=== PATIENT | female | born 1945 | race Caucasian/White ===

== ENCOUNTER 2017-09-21 06:49 | Day surgery (SDC) | payer MEDICARE, OTHER ==
--- NOTE | 2017-09-13 18:38 | HP ---
HISTORY AND PHYSICAL: DATE OF ADMISSION/SURGERY: 09/21/17 SURGEON: Dr. Esteban.* (DICTATED BY LUCIO SOTO) PROCEDURE: Left long finger excision of mass. CHIEF COMPLAINT: Left middle finger cyst. HISTORY OF PRESENT ILLNESS: Sophy is a very pleasant 72-year-old female, who has a lump on the dorsal aspect of her left middle finger. She says it has been present for a few months. She says that she had it drained a couple of times, once by her daughter, who is a PA, and then again by her primary care doctor. Both times it has recurred pretty quickly. She does not have any significant amount of pain and she does not recall any injury, but is quite bothersome. It has never drained spontaneously. She denies any numbness or tingling associated with it. PAST MEDICAL HISTORY: Significant for anxiety, hypothyroidism, and depression. PAST SURGICAL HISTORY: Includes thyroid and parathyroid, strabismus surgery x2 , and right total knee arthroplasty. MEDICATIONS: 1. Levothyroxine 50 mcg. 2. Montelukast 10 mg. 3. Citalopram 10 mg. 4. Zyrtec 10 mg. 5. B12 1000 mg. 6. Vitamin D3 1000 International Units. 7. Calcium 600 mg. 8. Multivitamin daily. ALLERGIES: She denies any known drug allergy. She has no allergy to tape or adhesive. SOCIAL HISTORY: She denies any tobacco use. She drinks alcohol socially and she denies any illicit drug use. REVIEW OF SYSTEMS: Positive for her current complaint. She denies any history of DVT or PE. She denies any history of fevers, chills, lightheadedness, palpitations, chest pain, shortness of breath with exertion, nausea, vomiting, constipation, abdominal pain, dysuria, or urinary urgency. She does endorse depression, anxiety, and thyroid disease. She denies any previous infections with MRSA, hepatitis C, or HIV. PHYSICAL EXAMINATION GENERAL: Well-developed, well-nourished, healthy-appearing, pleasant woman in minimal distress at rest. She ambulates without a limp. She has no obvious neurologic deficiency. She is alert and oriented x3. VITAL SIGNS: Height 66 inches, weight 134 pounds, pulse 70, blood pressure sitting 120/82, pain level 0, BMI 21.6. HEENT: Normocephalic, atraumatic. Pupils equally round and reactive to light and accommodation. Extraocular movements intact. NECK: Supple. There are no palpable cervical lymph nodes. Her thyroid is smooth and nontender. PULMONARY: Lungs clear to auscultation bilaterally with no wheezes, rales, or rhonchi. CARDIAC: Regular rate and rhythm. No murmurs, rubs, or gallops. No pedal edema. 2+ left radial pulse and brisk capillary refill at the left and right hands. ABDOMEN: Soft and nontender. MUSCULOSKELETAL: Her left hand, she has a large cystic mass just proximal to her left middle finger fingernail. She has good motion at the DIP joint. She has full extension and good flexion. Skin is intact. The cyst markedly. Neurovascular function is intact. DIAGNOSTIC STUDIES: X-ray, AP, lateral, and oblique of the left middle finger show dorsal bone spur at the DIP joint. IMPRESSION: Mucous cyst of the left middle finger. PLAN: Sophy is scheduled for a surgical removal of the left mucous cyst with Dr. Esteban on 09/21/17; specifically, she is scheduled for left long finger excision of mass. She will return to clinic in 7 to 10 days postop for followup and suture removal. Prescription for pain medication will be e- scribed to the patient's pharmacy of choice on the day of operation. All questions were answered today. LUCIO SOTO [id number]/[facility] #: [id number] ALIZA
[~2017-09-21 06:49] MED LIST: Buffered Lidocaine 0.9% SYRIN* 5 ML/SYR SYRINGE INTRADERM ONE
[2017-09-21] MEDS ORDERED: Lidocaine 1% INJ* 10 MG/ML 30 ML SDV ONE (07:54)
[2017-09-21] MEDS ORDERED: fentaNYL* 50 MCG/ML 2 ML VIAL (100 MCG VIAL) ONE (08:00)
[2017-09-21] MEDS ORDERED: Propofol* 10 MG/ML 20 ML BTL IV PUSH ONE (08:01)
[2017-09-21] MEDS ORDERED: Lidocaine 2% PF * 5 ML VIAL ONE (08:01)
[2017-09-21] MEDS ORDERED: Naloxone* 0.4 MG/ML 1 ML VIAL IV PRN (08:38)
[2017-09-21 09:13] VITALS: BP 130/84
[2017-09-21] MEDS ORDERED: traMADol TAB* 50 MG ONE (09:20)
[2017-09-21] MEDS ORDERED: Acetaminophen TAB* 325 MG ONE (09:22)
--- NOTE | 2017-09-21 23:28 | OP ---
CC: Dr. Esteban OPERATIVE NOTE: DATE OF OPERATION: 09/21/17 DATE OF : 49 SURGEON: Clau Esteban MD MANAGER NURSING HOME: LUCIO Holley ANESTHESIA: Local MAC. PRE-OP DIAGNOSIS: Left long finger ganglion cyst. POST-OP DIAGNOSIS: Left long finger ganglion cyst. OPERATIVE PROCEDURE: Removal, left long finger ganglion cyst. ESTIMATED BLOOD LOSS: Zero. TOURNIQUET TIME: 20 minutes. INDICATIONS FOR PROCEDURE: Sophy is a 72-year-old female with a painful mass at the dorsal aspect of the DIP joint of her left long finger. She presents for removal clinically of this ganglion cyst. DESCRIPTION OF PROCEDURE: The patient was brought to the operating room, given a sedation anesthetic and a digital block with 10 cc of 1% plain lidocaine. The skin of her left hand and forearm was pre pped and draped in the usual sterile fashion. The middle finger was exsanguinated with a Tournicot an d Tournicot was left in place during the duration of the procedure. The dorsal aspect of the DIP wayne nt was incised with an H shaped incision and then the ganglion cyst, which was really large ski n significantly was carefully dissected away from the skin and the underlying extensor tendon. Then on either side of the extensor tendon, an incision was made and the DIP osteophytes were moved with a rongeur. The wound was irrigated and the skin edges were reapproximated with 4-0 nylon suture. The wound was dressed with Xeroform, 4x4, Webril, and Coban. The patient tolerated the procedure well, was brought to the recovery room in good condition. [id number]/[facility] #: [id number]
--- NOTE | 2017-09-23 06:50 | OP ---
CC: Dr. Esteban. OPERATIVE REPORT: DATE OF OPERATION: 09/21/17 ADDENDUM/CORRECTION: The blank in the body of the note should say "which was really large and had thinned the skin significantly". [id number]/[facility] #: [id number] MTDD
== END 2017-09-21 09:48 | disposition home or self-care (01) ==
LOC: OREAST 06:49
PROVIDERS: ATTEND Orthopaedic Surgery
DX: M67.442 Ganglion, left hand (principal); M19.90 Unspecified osteoarthritis, unspecified site; E03.9 Hypothyroidism, unspecified; F41.8 Other specified anxiety disorders
CPT/HCPCS: 88304; A9270-GY; J2704; J3010

== ENCOUNTER 2018-09-03 20:27 | Emergency (ER) | payer MEDICARE, BC ==
[2018-09-03 20:37] VITALS: BP 126/72
--- NOTE | 2018-09-03 21:17 | UC ---
Skin Complaint HPI - HPI Summary HPI Summary: 2 DAYS OF ITCHY, VERY PAINFUL RED RASH TO THE SIDE OF HER LEFT BREAST AND UNDER HER ARM. HER DAUGHTER ADVISED HER TO BE SEEN FOR POSSIBLE SHINGLES. NO FEVER. - History of Current Complaint Chief Complaint: UCSkin Time Seen by Provider: 09/03/18 20:51 Stated Complaint: RASH Hx Obtained From: Patient Onset/Duration: Gradual Onset, Lasting Days, Still Present Timing: Constant Onset Severity: Moderate Current Severity: Moderate Pain Intensity: 4 Pain Scale Used: 0-10 Numeric Character: Pruritus, Pain Aggravating Factor(s): Touch Alleviating Factor(s): Nothing Associated Signs & Symptoms: Positive: Rash, Tenderness. Negative: Nausea, Fever, Chills - Allergy/Home Medications Allergies/Adverse Reactions: Allergies Allergy/AdvReac Type Severity Reaction Status Date / Time No Known Allergies Allergy Verified 09/03/18 20:37 PMH/Surg Hx/FS Hx/Imm Hx Endocrine History: Hypothyroidism - Surgical History Surgical History: Yes Surgery Procedure, Year, and Place: thyroid/ parathyroid, 2012, [facility]. right total knee, 2014, [facility]. lazy eye, 2012, x2, [place] and [facility]. tonsilectomy as a child - Family History Known Family History: Positive: Non-Contributory - Social History Alcohol Use: Weekly Alcohol Amount: 1 per week Substance Use Type: None Smoking Status (MU): Never Smoked Tobacco Review of Systems All Other Systems Reviewed And Are Negative: Yes Constitutional: Positive: Fatigue Skin: Positive: Rash Respiratory: Positive: Negative Cardiovascular: Positive: Negative Gastrointestinal: Positive: Negative Physical Exam Triage Information Reviewed: Yes Appearance: Well-Appearing, No Pain Distress, Well-Nourished Vital Signs: Initial Vital Signs Temp 97.1 F 09/03/18 20:33 Pulse 60 09/03/18 20:33 Resp 18 09/03/18 20:33 BP 126/72 09/03/18 20:33 Pulse Ox 99 09/03/18 20:33 Vital Signs Reviewed: Yes Eyes: Positive: Conjunctiva Clear ENT: Positive: Hearing grossly normal Neck: Positive: Supple Respiratory: Positive: No respiratory distress, No accessory muscle use Cardiovascular: Positive: Pulses Normal Abdomen Description: Positive: Soft Musculoskeletal: Positive: No Edema Neurological: Positive: Alert Psychological: Positive: Age Appropriate Behavior Skin: Positive: Rashes - CLUSTERS OF VESICLES LEFT LATERAL BREAST AND UNDER AXILLA. TENDER. Course/Dx - Diagnoses Provider Diagnosis: Shingles Discharge - Sign-Out/Discharge Documenting (check all that apply): Patient Departure All imaging exams completed and their final reports reviewed: No Studies - Discharge Plan Condition: Stable Disposition: HOME Prescriptions: Valacyclovir HCl [Valacyclovir] 1,000 mg PO TID #21 tablet Patient Education Materials: Shingles (ED) Referrals: John Nieves MD [Medical Doctor] - If Needed Additional Instructions: YOUR RASH IS CONSISTENT WITH SHINGLES. START THE VALTREX JUS TO HELP EXPEDITE RESOLUTION OF YOUR SYMPTOMS. TAKE IBUPROFEN NEEDED FOR DISCOMFORT. THERE IS NO INDICATION FOR MEDICATIONS SPECIFICALLY FOR POST HERPETIC NEURALGIA (PHN) IN UNCOMPLICATED SHINGLES. IF YOU DEVELOP PHN (WHICH HOPEFULLY YOU WILL NOT) YOU CAN DISCUSS TREATMENT WITH YOUR PCP AT THAT TIME. YOU ARE CONTAGIOUS TO UNVACCINATED INFANTS SO BE SURE TO KEEP THE RASH COVERED. - Billing Disposition and Condition Condition: STABLE Disposition: Home
== END 2018-09-03 21:19 | disposition home or self-care (01) ==
LOC: UCEAST 20:27
DX: B02.9 Zoster without complications (principal)
CPT/HCPCS: 99202; G0463

== ENCOUNTER 2018-11-11 12:28 | Emergency (ER) | payer MEDICARE, BC ==
[2018-11-11 13:06] VITALS: BP 116/71
--- NOTE | 2018-11-11 13:33 | UC ---
Throat Pain/Nasal Wilber HPI - HPI Summary HPI Summary: 73-year-old female presents stating she woke up with a sore throat this morning. States she has had some mild nasal congestion and runny nose that she attributes to her allergies. States the pain radiates up into both ears. Denies fever, chills, dysphagia, cough, chest pain, shortness of breath. - History of Current Complaint Chief Complaint: UCGeneralIllness Stated Complaint: SORE THROAT Time Seen by Provider: 11/11/18 13:22 Hx Obtained From: Patient Pain Intensity: 0 - Allergies/Home Medications Allergies/Adverse Reactions: Allergies Allergy/AdvReac Type Severity Reaction Status Date / Time No Known Allergies Allergy Verified 11/11/18 13:05 PMH/Surg Hx/FS Hx/Imm Hx Endocrine History: Hypothyroidism Psychological History: Depression - Surgical History Surgical History: Yes Surgery Procedure, Year, and Place: thyroid/ parathyroid, 2012, [facility]. right total knee, 2014, [facility]. lazy eye, 2012, x2, [place] and [facility]. tonsilectomy as a child - Family History Known Family History: Positive: Non-Contributory - Social History Occupation: Retired Lives: Alone Alcohol Use: Weekly Alcohol Amount: 1 per week Substance Use Type: None Smoking Status (MU): Never Smoked Tobacco Review of Systems All Other Systems Reviewed And Are Negative: Yes Constitutional: Negative: Fever, Chills Skin: Negative: Rash Eyes: Negative: Drainage, Eye Redness ENT: Positive: Sore Throat, Ear Ache, Nasal Discharge, Sinus Congestion. Negative: Sinus Pain/Tenderness Respiratory: Negative: Shortness Of Breath, Cough Cardiovascular: Negative: Palpitations, Chest Pain Gastrointestinal: Negative: Abdominal Pain, Vomiting, Diarrhea, Nausea Genitourinary: Positive: Negative Musculoskeletal: Positive: Negative Neurological: Positive: Negative Is Patient Immunocompromised?: No Physical Exam - Summary Physical Exam Summary: GENERAL APPEARANCE: Well developed, well nourished, alert and cooperative, and appears to be in no acute distress. EYES: Conjunctiva clear. No drainage. EARS: External auditory canals and tympanic membranes clear, hearing grossly intact. NOSE: No nasal discharge. THROAT: Pharyngeal erythema. Tonsils surgically absent. Uvula midline. Oral cavity normal. Teeth and gingiva in good general condition. NECK: Neck supple. Tender, swollen left anterior cervical lymph node. CARDIAC: Normal S1 and S2. No S3, S4 or murmurs. Rhythm is regular. There is no peripheral edema, cyanosis or pallor. Extremities are warm and well perfused. Capillary refill is less than 2 seconds. Peripheral pulses intact. LUNGS: Clear to auscultation without rales, rhonchi, wheezing or diminished breath sounds. ABDOMEN: Positive bowel sounds. Soft, nondistended, nontender. No guarding or rebound. No masses or hepatosplenomegally. MUSKULOSKELETAL: ROM intact to all extremities. No joint erythema or tenderness. Normal muscular development. Normal gait. SKIN: Skin normal color, texture and turgor with no lesions or eruptions. Triage Information Reviewed: Yes Vital Signs: Initial Vital Signs Temp 98.2 F 11/11/18 13:03 Pulse 70 11/11/18 13:03 Resp 18 11/11/18 13:03 BP 116/71 11/11/18 13:03 Pulse Ox 100 11/11/18 13:03 Vital Signs Reviewed: Yes Throat Pain/Nasal Course/Dx - Course Course Of Treatment: 73-year-old female presents stating she woke up with a sore throat this morning. States she has had some mild nasal congestion and runny nose that she attributes to her allergies. States the pain radiates up into both ears. Denies fever, chills, dysphagia, cough, chest pain, shortness of breath. Afebrile. Vital signs stable. Exam was remarkable for some pharyngeal erythema and a tender, swollen left anterior cervical lymph node. Rapid strep was negative. Recommending symptomatic treatment for a viral pharyngitis. She is to follow-up with her primary care provider in 7 days if no improvement in her symptoms. Anticipatory guidance and warning symptoms were reviewed with the patient. Verbalized understanding and agrees with care. - Differential Dx/Diagnosis Differential Diagnosis/HQI/PQRI: Pharyngitis, Sinusitis, Tonsillitis, URI Provider Diagnosis: Viral pharyngitis Discharge - Sign-Out/Discharge Documenting (check all that apply): Patient Departure All imaging exams completed and their final reports reviewed: No Studies - Discharge Plan Condition: Stable Disposition: HOME Patient Education Materials: Pharyngitis (ED) Referrals: No Primary Care Phys,NOPCP [Primary Care Provider] - Additional Instructions: Your rapid strep test in the clinic today was negative. Your symptoms are likely from a viral infection. Viral infections do not respond to antibiotics and are limited to the treatment of symptoms. Viral infections typically run their course in 7-10 days. Drink plenty of fluids to avoid dehydration especially if you are running any fever. Use salt water gargles several times a day. Take over the counter acetaminophen (Tylenol) or ibuprofen (Advil, Motrin) according to directions as needed for pain or fever. You may also use Chloraseptic spray or Cepacol lonzenges according to directions which contain a numbing medication and can provide some temporary relief from your sore throat. Return here or follow up with your primary care provider in 7 days if symptoms persist. Seek immediate medical attention in the emergency room if you have fever greater than 100.5 F despite taking acetaminophen or ibuprofen, are unable to swallow or develop drooling, are unable to open your mouth fully, are unable to eat or drink, have pain that is not relieved with over the counter pain medication, or have any difficulty breathing. - Billing Disposition and Condition Condition: STABLE Disposition: Home - Attestation Statements Provider Attestation: Per institutional requirements, I have reviewed the chart, however, I was not consulted specifically or made aware of this patient by the midlevel provider. I did not personally evaluate, interact with , or disposition this patient.
== END 2018-11-11 13:45 | disposition home or self-care (01) ==
LOC: UCEAST 12:28
DX: J02.8 Acute pharyngitis due to other specified organisms (principal); E03.9 Hypothyroidism, unspecified; F32.9 Major depressive disorder, single episode, unspecified
CPT/HCPCS: 87651; 99211; G0463

== ENCOUNTER 2022-12-07 02:13 | Inpatient (IN) ==
[2022-12-07] MEDS ORDERED: Sodium Phosphate ADULT ENEMA 133 ML BTL PR ONE (02:42)
[2022-12-07 02:44] LABS: ABS Lymphocytes 0.5 10^3/uL (1.0-4.8); ABS Monocytes 0.1 10^3/uL (0.0-0.9); ABS Neutrophils 3.1 10^3/uL (1.5-7.6); ABS Nucleated RBC 0.01 10^3/ul; Eosinophil % 0.1 %; Hematocrit 39.9 % (35-45); Hemoglobin 13.5 g/dL (11.5-14.3); Mean Corpuscular Hemoglobin 32.4 pg (27-33); Mean Corpuscular Hgb Conc 33.9 g/dL (31-36); Mean Corpuscular Volume 95.4 fL (80-97); Mean Platelet Volume 8.5 fL (7.5-11.2); Nucleated Red Blood Cells % 0.2 /100 WBC (0.0-0.4); Platelet Count 190 10^3/uL (150-450); Red Blood Count 4.18 10^6/uL (3.63-4.92); Red Cell Distribution Width 13.6 % (12-17); White Blood Count 3.7 10^3/uL (3.8-11.8)
[2022-12-07 03:00] LABS: ALT 11 U/L (7-52); AST 13 U/L (13-39); Albumin 3.6 g/dL (3.2-5.2); Albumin/Globulin Ratio 1.7 (1-3); Alkaline Phosphatase 31 U/L (35-149); Anion Gap 9 mmol/L (2-16); Blood Urea Nitrogen 36 mg/dL (6-24); CO2 Carbon Dioxide 25 mmol/L (22-32); Calcium 8.7 mg/dL (8.6-10.3); Chloride 105 mmol/L (101-111); Creatinine, Serum 1.22 mg/dL (0.51-0.95); Globulin 2.1 g/dL (2-4); Glucose 118 mg/dL (70-100); Potassium 4.6 mmol/L (3.5-5.0); Sodium 139 mmol/L (135-145); Total Protein 5.7 g/dL (6.4-8.9); eGFR CKD-EPI 46.3 (>60)
[2022-12-07] MEDS ORDERED: NS 0.9% 1000 ml BAG 1,000 ML IV ONE ×2 (03:46→07:29)
[2022-12-07] MEDS ORDERED: fentaNYL 100 mcg/2 ml 50 MCG/ML VIAL IV SLOW PU ONE (05:36)
[2022-12-07] MEDS ORDERED: Ondansetron 4 mg VIAL 2 MG/ML 2 ml VIAL IV ONE (07:29)
[2022-12-07] MEDS ORDERED: HYDROmorphone 1 MG/1 ML SYRINGE IV SLOW PU ONE (07:45)
[2022-12-07 08:01] LABS: Indirect Bilirubin 1.5 mg/dL (0.3-1.0); Lipase < 10 U/L (11.0-82.0)
[2022-12-07] MEDS ORDERED: Iodixanol (CONTRAST) 320 MG/ML 100 ML SDV IV ONE (08:36)
[2022-12-07] MEDS ORDERED: HYDROmorphone 1 MG/1 ML SYRINGE IV ONE (10:02)
[2022-12-07] MEDS ORDERED: Piperacillin/Tazobac ADVAN 3.375 GM in NS 0.9% 100 ml BAG 100 ML IV ONE (10:51)
[2022-12-07] MEDS ORDERED: HYDROmorphone 1 MG/1 ML SYRINGE IV SLOW PU PRN (11:23)
[2022-12-07] MEDS ORDERED: Acetaminophen IV 1 GM/100ML 500 MG/50 ML BAG IV PRN (11:33)
[2022-12-07] MEDS ORDERED: NS 0.9% 1000 ml BAG 1,000 ML IV SCH (11:45)
[2022-12-07 11:57] LABS: C Reactive Protein 168.42 mg/L (<8.01)
[2022-12-07] MEDS ORDERED: Rocuronium 50 mg VIAL 10 mg/ml 5 ml VIAL (50 mg) ONE ×2 (12:03→15:03)
[2022-12-07] MEDS ORDERED: Phenylephrine IV 10 MG/ML 1 ml VIAL ONE (12:04)
[2022-12-07] MEDS ORDERED: fentaNYL 250 mcg/5 ml 50 MCG/ML 5 ml VIAL (250 MCG) ONE (12:04)
[2022-12-07] MEDS ORDERED: Propofol 10 MG/ML 20 ML BTL ONE ×2 (12:04→12:54)
[2022-12-07] MEDS ORDERED: Midazolam 2 mg/2 ml VIAL 1 mg/ml 2 ml VIAL (2 mg) ONE ×2 (12:04→12:23)
[2022-12-07] MEDS ORDERED: Lidocaine 2% PF 5 ML VIAL ONE ×2 (12:04→12:25)
[2022-12-07] MEDS ORDERED: Bupivacaine 0.5% 50 ML MDV VIAL ONE (13:39)
[2022-12-07] MEDS ORDERED: Ondansetron 4 mg VIAL 2 MG/ML 2 ml VIAL IV PRN (13:53)
[2022-12-07] MEDS ORDERED: Naloxone 0.4 mg VIAL 0.4 mg/ml 1 ml VIAL IV PRN (13:53)
[2022-12-07] MEDS ORDERED: Ondansetron 4 mg VIAL 2 MG/ML 2 ml VIAL ONE (17:58)
[2022-12-07] MEDS ORDERED: Dexamethasone IV 4 MG/ML VIAL 1 ml VIAL ONE (17:58)
[2022-12-07] MEDS ORDERED: HYDROmorphone 1 MG/1 ML SYRINGE ONE (18:26)
[2022-12-07] MEDS: HYDROmorphone 1 MG/1 ML SYRINGE IV PRN ×2 (18:28→18:43)
[2022-12-07] MEDS ORDERED: Naloxone 0.4 mg VIAL 0.4 mg/ml 1 ml VIAL IV PUSH PRN (18:52)
[2022-12-07] MEDS ORDERED: HYDROmorphone PCA 20 MG/20 ML PCA.SYRING PCA SCH (19:00)
[2022-12-07] MEDS ORDERED: Phenylephrine DRIP 0.2 MG/ML in NS 0.9% 250 ML (PHA mix) IV SCH (21:30)
[2022-12-07] MEDS ORDERED: PHENYLEPHRINE DRIP IVPREMIX 50 MG/250 ML BAG IV SCH (22:00)
[2022-12-07] MEDS ORDERED: D5W 1/2 NS 1000 ml BAG 1,000 ML IV SCH (22:00)
[2022-12-07] MEDS ORDERED: ZOSYN 3.375 GM x ONE DOSE over 30 miuntes IV (23:00)
[2022-12-07] MEDS: Acetaminophen IV 1 GM/100ML 1,000 MG/100 ML BAG IV SCH (23:17)
[2022-12-07] MEDS: Pantoprazole VIAL 40 MG VIAL IV SCH (23:31)
[2022-12-07] MEDS: Piperacillin/Tazobactam VIAL 3.375 GM in NS 0.9% 100 ml BAG 100 ML IVPB SCH (23:44)
[2022-12-08] MEDS: Piperacillin/Tazobactam VIAL 3.375 GM in NS 0.9% 100 ml BAG 100 ML IVPB SCH ×4 (00:27→22:24)
[2022-12-08] MEDS: Acetaminophen IV 1 GM/100ML 1,000 MG/100 ML BAG IV SCH ×4 (02:26→21:46)
[2022-12-08] MEDS ORDERED: NS 0.9% 1000 ml BAG 1,000 ML IV ONE (04:37)
[2022-12-08 04:59] LABS: Hematocrit 35.4 % (35-45); Hemoglobin 11.9 g/dL (11.5-14.3); Mean Corpuscular Hemoglobin 31.8 pg (27-33); Mean Corpuscular Hgb Conc 33.7 g/dL (31-36); Mean Corpuscular Volume 94.5 fL (80-97); Mean Platelet Volume 8.2 fL (7.5-11.2); Platelet Count 165 10^3/uL (150-450); Red Blood Count 3.75 10^6/uL (3.63-4.92); White Blood Count 8.6 10^3/uL (3.8-11.8)
[2022-12-08 05:31] LABS: ABS Lymphocytes 0.5 10^3/uL (1.0-4.8); ABS Monocytes 0.2 10^3/uL (0.0-0.9); ABS Neutrophils 7.9 10^3/uL (1.5-7.6); ABS Nucleated RBC 0.01 10^3/ul; Eosinophil % 0.1 %; Lymphocyte % 5.6 %; Nucleated Red Blood Cells % 0.1 /100 WBC (0.0-0.4)
[2022-12-08 05:44] LABS: Calcium 6.8 mg/dL (8.6-10.3); Creatinine, Serum 1.09 mg/dL (0.51-0.95); Magnesium 1.7 mg/dL (1.9-2.7); Phosphorus 2.6 mg/dL (2.5-5.0); Potassium 4.6 mmol/L (3.5-5.0)
[2022-12-08] MEDS ORDERED: Levothyroxine 100 MCG/5 ML VIAL IV SCH (06:00)
[2022-12-08] MEDS ORDERED: Magnesium Sulfate 2 gm BAG 2 GM/50 ML BAG IVPB ONE (07:11)
[2022-12-08] MEDS: HYDROmorphone 0.5 MG/0.5 ML SYRINGE IV SLOW PU PRN ×2 (09:15→13:16)
[2022-12-08] MEDS ORDERED: Lactated Ringers 1000 ml BAG 1,000 ML IV SCH (10:00)
[2022-12-08] MEDS: D5W 1/2 NS 1000 ml BAG 1,000 ML IV SCH ×2 (10:16→18:42)
[2022-12-08] MEDS ORDERED: Albuterol HFA INHALER 8 gm MDI INH PRN (13:52)
[2022-12-08] MEDS: Enoxaparin 40 MG/0.4 ML SYR SUBCUT SCH (14:00)
[2022-12-08] MEDS: Pantoprazole VIAL 40 MG VIAL IV SCH (22:24)
[2022-12-08] MEDS: HYDROmorphone 1 MG/1 ML SYRINGE IV SLOW PU PRN (22:24)
[2022-12-09] MEDS: Acetaminophen IV 1 GM/100ML 1,000 MG/100 ML BAG IV SCH ×4 (03:48→21:07)
[2022-12-09] MEDS: Piperacillin/Tazobactam VIAL 3.375 GM in NS 0.9% 100 ml BAG 100 ML IVPB SCH ×3 (04:22→20:59)
[2022-12-09] MEDS: D5W 1/2 NS 1000 ml BAG 1,000 ML IV SCH (05:46)
[2022-12-09 08:28] LABS: Hematocrit 29.1 % (35-45); Hemoglobin 9.9 g/dL (11.5-14.3); Mean Corpuscular Hemoglobin 32.1 pg (27-33); Mean Corpuscular Volume 94.3 fL (80-97); Platelet Count 155 10^3/uL (150-450); Red Blood Count 3.09 10^6/uL (3.63-4.92); White Blood Count 11.1 10^3/uL (3.8-11.8)
[2022-12-09 08:41] LABS: Calcium 7.4 mg/dL (8.6-10.3); Creatinine, Serum 0.79 mg/dL (0.51-0.95); Magnesium 2.5 mg/dL (1.9-2.7); Potassium 4.3 mmol/L (3.5-5.0)
[2022-12-09] MEDS: Enoxaparin 40 MG/0.4 ML SYR SUBCUT SCH (14:41)
[2022-12-09] MEDS ORDERED: D5W 1/2 NS 1000 ml BAG 1,000 ML IV SCH (15:00)
[2022-12-09] MEDS: Pantoprazole VIAL 40 MG VIAL IV SCH (22:07)
[2022-12-09] MEDS: HYDROmorphone 1 MG/1 ML SYRINGE IV SLOW PU PRN (22:07)
[2022-12-10] MEDS: Acetaminophen IV 1 GM/100ML 1,000 MG/100 ML BAG IV SCH ×3 (02:49→16:26)
[2022-12-10] MEDS: Piperacillin/Tazobactam VIAL 3.375 GM in NS 0.9% 100 ml BAG 100 ML IVPB SCH ×3 (05:49→20:02)
[2022-12-10 06:46] LABS: Hematocrit 26.5 % (35-45); Hemoglobin 9.2 g/dL (11.5-14.3); Mean Corpuscular Hgb Conc 34.5 g/dL (31-36); Mean Corpuscular Volume 92.7 fL (80-97); Platelet Count 149 10^3/uL (150-450); Red Blood Count 2.86 10^6/uL (3.63-4.92); Red Cell Distribution Width 14.5 % (12-17); White Blood Count 8.6 10^3/uL (3.8-11.8)
[2022-12-10 07:15] LABS: ABS Eosinophils 0.1 10^3/uL (0.0-0.5); ABS Lymphocytes 0.8 10^3/uL (1.0-4.8); ABS Monocytes 0.3 10^3/uL (0.0-0.9); ABS Neutrophils 7.4 10^3/uL (1.5-7.6); Eosinophil % 0.7 %; Lymphocyte % 9.3 %
[2022-12-10 07:23] LABS: Creatinine, Serum 0.66 mg/dL (0.51-0.95); Potassium 4.1 mmol/L (3.5-5.0); eGFR CKD-EPI 91.4 (>60)
[2022-12-10] MEDS: Enoxaparin 40 MG/0.4 ML SYR SUBCUT SCH (16:24)
[2022-12-10] MEDS: HYDROmorphone 1 MG/1 ML SYRINGE IV SLOW PU PRN (22:34)
[2022-12-10] MEDS: Pantoprazole VIAL 40 MG VIAL IV SCH (22:42)
[2022-12-11] MEDS: Acetaminophen IV 1 GM/100ML 1,000 MG/100 ML BAG IV SCH ×3 (00:33→08:43)
[2022-12-11] MEDS: Piperacillin/Tazobactam VIAL 3.375 GM in NS 0.9% 100 ml BAG 100 ML IVPB SCH ×3 (04:00→20:23)
[2022-12-11] MEDS: Ondansetron 4 mg VIAL 2 MG/ML 2 ml VIAL IV PRN (08:41)
[2022-12-11] MEDS ORDERED: Calcium Carb (TUMS) 500 mg CHEW TAB ONE (09:04)
[2022-12-11] MEDS: Calcium Carb (TUMS) 500 mg CHEW TAB PO SCH ×3 (09:06→20:23)
[2022-12-11] MEDS: Enoxaparin 40 MG/0.4 ML SYR SUBCUT SCH (13:10)
[2022-12-11] MEDS: Pantoprazole VIAL 40 MG VIAL IV SCH (22:08)
[2022-12-12] MEDS: Piperacillin/Tazobactam VIAL 3.375 GM in NS 0.9% 100 ml BAG 100 ML IVPB SCH ×2 (03:40→13:31)
[2022-12-12] MEDS: Calcium Carb (TUMS) 500 mg CHEW TAB PO SCH ×3 (10:05→21:25)
[2022-12-12] MEDS: Enoxaparin 40 MG/0.4 ML SYR SUBCUT SCH (15:03)
[2022-12-12] MEDS: Pantoprazole VIAL 40 MG VIAL IV SCH (21:25)
[2022-12-13] MEDS: Ondansetron 4 mg VIAL 2 MG/ML 2 ml VIAL IV PRN (04:24)
[2022-12-13 06:22] LABS: Hematocrit 29.8 % (35-45); Hemoglobin 9.9 g/dL (11.5-14.3); Mean Corpuscular Hemoglobin 31.1 pg (27-33); Mean Corpuscular Hgb Conc 33.3 g/dL (31-36); Mean Corpuscular Volume 93.4 fL (80-97); Mean Platelet Volume 7.8 fL (7.5-11.2); Platelet Count 271 10^3/uL (150-450); Red Cell Distribution Width 14.4 % (12-17); White Blood Count 15.5 10^3/uL (3.8-11.8)
[2022-12-13 06:45] LABS: Calcium 7.9 mg/dL (8.6-10.3); Creatinine, Serum 0.49 mg/dL (0.51-0.95); Potassium 3.6 mmol/L (3.5-5.0); eGFR CKD-EPI 98.2 (>60)
[2022-12-13 08:33] LABS: RBC Morphology Normal (Normal)
[2022-12-13 08:34] LABS: ABS Eosinophils 0.1 10^3/uL (0.0-0.5); ABS Monocytes 0.5 10^3/uL (0.0-0.9); ABS Neutrophils 13.9 10^3/uL (1.5-7.6); Eosinophil % 0.4 %; Lymphocyte % 6.3 %
[2022-12-13] MEDS: Calcium Carb (TUMS) 500 mg CHEW TAB PO SCH ×3 (09:29→22:18)
[2022-12-13] MEDS: Enoxaparin 40 MG/0.4 ML SYR SUBCUT SCH (14:28)
[2022-12-13] MEDS: Pantoprazole VIAL 40 MG VIAL IV SCH (22:19)
[2022-12-14 06:29] LABS: ABS Eosinophils 0.1 10^3/uL (0.0-0.5); ABS Lymphocytes 0.9 10^3/uL (1.0-4.8); ABS Monocytes 0.5 10^3/uL (0.0-0.9); ABS Neutrophils 12.9 10^3/uL (1.5-7.6); ABS Nucleated RBC 0.01 10^3/ul; Eosinophil % 0.5 %; Hemoglobin 9.3 g/dL (11.5-14.3); Lymphocyte % 6.6 %; Mean Corpuscular Hemoglobin 30.8 pg (27-33); Mean Corpuscular Hgb Conc 33.4 g/dL (31-36); Mean Corpuscular Volume 92.2 fL (80-97); Mean Platelet Volume 7.8 fL (7.5-11.2); Nucleated Red Blood Cells % 0.1 /100 WBC (0.0-0.4); Platelet Count 332 10^3/uL (150-450); Red Blood Count 3.04 10^6/uL (3.63-4.92); Red Cell Distribution Width 14.4 % (12-17); White Blood Count 14.5 10^3/uL (3.8-11.8)
[2022-12-14 06:49] LABS: Calcium 8.1 mg/dL (8.6-10.3); Creatinine, Serum 0.52 mg/dL (0.51-0.95); Magnesium 1.8 mg/dL (1.9-2.7); Potassium 4.1 mmol/L (3.5-5.0); eGFR CKD-EPI 96.8 (>60)
[2022-12-14] MEDS: Calcium Carb (TUMS) 500 mg CHEW TAB PO SCH ×3 (09:07→20:36)
[2022-12-14] MEDS: Enoxaparin 40 MG/0.4 ML SYR SUBCUT SCH (13:26)
[2022-12-14] MEDS: Pantoprazole VIAL 40 MG VIAL IV SCH (21:32)
[2022-12-15 07:52] LABS: ABS Eosinophils 0.1 10^3/uL (0.0-0.5); ABS Lymphocytes 1.1 10^3/uL (1.0-4.8); ABS Monocytes 0.7 10^3/uL (0.0-0.9); ABS Neutrophils 12.4 10^3/uL (1.5-7.6); Eosinophil % 0.5 %; Hematocrit 29.2 % (35-45); Hemoglobin 10.2 g/dL (11.5-14.3); Lymphocyte % 7.6 %; Mean Corpuscular Hgb Conc 34.7 g/dL (31-36); Mean Corpuscular Volume 92.2 fL (80-97); Mean Platelet Volume 7.8 fL (7.5-11.2); Platelet Count 441 10^3/uL (150-450); Red Blood Count 3.17 10^6/uL (3.63-4.92); Red Cell Distribution Width 14.1 % (12-17); White Blood Count 14.3 10^3/uL (3.8-11.8)
[2022-12-15] MEDS: Calcium Carb (TUMS) 500 mg CHEW TAB PO SCH ×3 (09:07→21:35)
[2022-12-15] MEDS ORDERED: Piperacillin/Tazobac ADVAN 3.375 GM in NS 0.9% 100 ml BAG 100 ML IV ONE (11:36)
[2022-12-15] MEDS ORDERED: Zosyn per Pharmacy NOTE FOLLOW UP SCH (12:00)
[2022-12-15] MEDS: Enoxaparin 40 MG/0.4 ML SYR SUBCUT SCH (15:00)
[2022-12-15] MEDS: ZOSYN 3.375 GM Q8H per EXTENDED INFUSION IV SCH (18:28)
[2022-12-15] MEDS: Pantoprazole VIAL 40 MG VIAL IV SCH (21:42)
[2022-12-16] MEDS: ZOSYN 3.375 GM Q8H per EXTENDED INFUSION IV SCH ×2 (01:51→08:57)
[2022-12-16] MEDS: Calcium Carb (TUMS) 500 mg CHEW TAB PO SCH (08:58)
[2022-12-16 09:25] VITALS: BP 138/87
== END 2022-12-16 14:05 | disposition home or self-care (01) | DRG 329 ==
LOC: ED 02:13 → EDHOLD 11:23 → ICU 21:48 → SSU 12-08 17:05
PROVIDERS: ADMIT Surgery Surgical Critical Care; ATTEND Surgery Surgical Critical Care

== ENCOUNTER 2023-03-16 06:29 | Inpatient (IN) ==
[2023-03-16] MEDS ORDERED: Lactated Ringers 1000 ml BAG 1,000 ML IV ONE (08:03)
[2023-03-16] MEDS ORDERED: Ondansetron 4 mg VIAL 2 MG/ML 2 ml VIAL IV ONE ×2 (08:03→09:36)
[2023-03-16] MEDS ORDERED: Famotidine IV 10 MG/ML 2 ml VIAL (20 mg) IV SLOW PU ONE (08:03)
[2023-03-16 08:53] LABS: ABS Neutrophils 10.8 10^3/uL (1.5-7.6); Hematocrit 37.1 % (35-45); Hemoglobin 12.3 g/dL (11.5-14.3); Mean Corpuscular Hgb Conc 33.2 g/dL (31-36); Mean Corpuscular Volume 93.5 fL (80-97); Mean Platelet Volume 8.1 fL (7.5-11.2); Platelet Count 234 10^3/uL (150-450); Red Blood Count 3.97 10^6/uL (3.63-4.92); White Blood Count 12.5 10^3/uL (3.8-11.8)
[2023-03-16 08:54] LABS: ABS Monocytes 0.7 10^3/uL (0.0-0.9); Eosinophil % 0.2 %; Lymphocyte % 7.8 %
[2023-03-16 09:16] LABS: ALT 9 U/L (7-52); AST 14 U/L (13-39); Albumin 3.9 g/dL (3.2-5.2); Albumin/Globulin Ratio 1.3 (1-3); Alkaline Phosphatase 36 U/L (35-149); Anion Gap 8 mmol/L (2-16); Blood Urea Nitrogen 26 mg/dL (6-24); C Reactive Protein < 1.00 mg/L (<8.01); CO2 Carbon Dioxide 29 mmol/L (22-32); Calcium 9.6 mg/dL (8.6-10.3); Chloride 103 mmol/L (101-111); Glucose 114 mg/dL (70-100); Lipase 48 U/L (11.0-82.0); Sodium 140 mmol/L (135-145); Total Protein 6.9 g/dL (6.4-8.9); eGFR CKD-EPI 89.6 (>60)
[2023-03-16] MEDS ORDERED: Iohexol 350 (CONTRAST) 500 ML MDV IV ONE (09:30)
[2023-03-16] MEDS ORDERED: fentaNYL 100 mcg/2 ml 50 MCG/ML VIAL IV SLOW PU ONE ×2 (09:36→12:09)
[2023-03-16] MEDS ORDERED: Lactated Ringers 1000 ml BAG 1,000 ML IV SCH ×2 (13:00)
[2023-03-16] MEDS ORDERED: ACETAMINOPHEN IV SCH (13:30)
[2023-03-16 13:42] LABS: Urine Appearance Cloudy; Urine Bilirubin Negative (Negative); Urine Blood Negative (Negative); Urine Color Yellow; Urine Glucose Negative (Negative); Urine Ketones Negative (Negative); Urine Nitrite Negative (Negative); Urine Protein Negative (Negative); Urine Specific Gravity 1.027 (1.002-1.030); Urine Urobilinogen Negative (Negative)
[2023-03-16] MEDS: ACETAMINOPHEN IV SCH ×2 (14:28→20:14)
[2023-03-16] MEDS: Ondansetron 4 mg VIAL 2 MG/ML 2 ml VIAL IV PRN ×2 (18:17→23:48)
[2023-03-16] MEDS: Lactated Ringers 1000 ml BAG 1,000 ML IV SCH (23:32)
[2023-03-17] MEDS: Ondansetron 4 mg VIAL 2 MG/ML 2 ml VIAL IV PRN (04:21)
[2023-03-17] MEDS: ACETAMINOPHEN IV SCH ×3 (05:58→20:51)
[2023-03-17 07:16] LABS: ABS Eosinophils 0.1 10^3/uL (0.0-0.5); ABS Lymphocytes 1.7 10^3/uL (1.0-4.8); ABS Monocytes 0.7 10^3/uL (0.0-0.9); ABS Neutrophils 6.2 10^3/uL (1.5-7.6); Eosinophil % 0.7 %; Hematocrit 36.7 % (35-45); Hemoglobin 12.3 g/dL (11.5-14.3); Lymphocyte % 19.5 %; Mean Corpuscular Hemoglobin 31.3 pg (27-33); Mean Corpuscular Hgb Conc 33.6 g/dL (31-36); Mean Corpuscular Volume 93.3 fL (80-97); Mean Platelet Volume 8.6 fL (7.5-11.2); Platelet Count 237 10^3/uL (150-450); Red Blood Count 3.93 10^6/uL (3.63-4.92); Red Cell Distribution Width 13.7 % (12-17); White Blood Count 8.7 10^3/uL (3.8-11.8)
[2023-03-17 07:35] LABS: Calcium 9.1 mg/dL (8.6-10.3); Creatinine, Serum 0.72 mg/dL (0.51-0.95); Potassium 4.3 mmol/L (3.5-5.0); eGFR CKD-EPI 86.6 (>60)
[2023-03-17] MEDS ORDERED: Diatrizoate Meg/Sod(CONTRAST) 30 ML ORAL.SOLN PO ONE (08:02)
[2023-03-17] MEDS: Lactated Ringers 1000 ml BAG 1,000 ML IV SCH ×2 (08:19→16:29)
[2023-03-18] MEDS: Lactated Ringers 1000 ml BAG 1,000 ML IV SCH ×3 (00:54→17:53)
[2023-03-18] MEDS: ACETAMINOPHEN IV SCH ×2 (06:01→17:50)
[2023-03-19] MEDS: Lactated Ringers 1000 ml BAG 1,000 ML IV SCH (01:59)
[2023-03-20 11:07] VITALS: BP 128/83
== END 2023-03-20 11:25 | disposition home or self-care (01) | DRG 390 ==
LOC: EDHOLD 06:29 → ED 06:29 → SSU 16:26
PROVIDERS: ADMIT Surgery; ATTEND Surgery